=== PATIENT | female | born 1970 | race Caucasian/White ===

== ENCOUNTER 2022-08-28 14:02 | Emergency (ER) | payer BC ==
[2022-08-28 15:02] LABS: Absolute Lymphocytes (CBC) 2.5 K/uL (0.7-4.9); Hematocrit 42.5 % (36.0-45.0); Lymphocytes % 36.1 % (15.3-44.8); MCV 84.6 fL (80-100); MPV 8.8 fL (7.6-11.3); RBC Red Blood Cell Count 5.02 M/uL (3.86-4.86)
[2022-08-28] MEDS ORDERED: ASPIRIN 81 MG CHEWABLE TABLET ONE (15:05)
[2022-08-28] MEDS ORDERED: ONDANSETRON 4 MG/2 ML VIAL ONE (15:06)
[2022-08-28] MEDS ORDERED: MORPHINE 2 MG/ML SYR ONE (15:06)
[2022-08-28 15:42] LABS: Troponin High Sensitivity 4.3 pg/mL (<58.9)
[2022-08-28 15:44] LABS: Potassium 3.7 mmol/L (3.5-5.1)
--- NOTE | 2022-08-28 16:05 | RAD REPORT ---
EXAM DESCRIPTION: Tori Single View08/28/2022 3:27 pm CLINICAL HISTORY: Cough COMPARISON: none FINDINGS: The lungs appear clear of acute infiltrate. The heart is normal size IMPRESSION: No acute abnormalities displayed
--- NOTE | 2022-08-28 16:46 | EDPHYS ---
Physician Documentation [facility] Name: Marta Silverio Age: 51 yrs Sex: Female : 1970 Arrival Date: 08/28/2022 Time: 14:03 Bed 6 Private MD: LUIS Physician Ivana Manzano HPI: 08/28 14:57 This 51 yrs old Female presents to ER via Ambulatory with complaints of Chest Pain, sd2 Numbness Of Arm, Flu Symptoms. 14:57 51-year-old female presents with chief complaint of left-sided chest pain radiating to sd2 her left arm with numbness of the arm and flulike symptoms. She reports she initially started with a cold and flulike symptoms including cough, congestion, chills and body aches over the past few days. She noticed today that she had some worsening pain in her chest along with shortness of breath. She denies any known fevers, vomiting or recent sick contacts. She did recently drive down from home approximately 10 hours for the holidays. She was seen at urgent care before coming to our facility and tested negative for COVID and flu there before being sent here. They also reported that her blood pressure was high there at an unknown number greater than 140. She denies any prior history of HTN or cardiac issues. Denies leg edema, palpitations or hormone use. . 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 - Social history:: Smoking status: Patient denies any tobacco usage or history of. ROS: 14:57 Eyes: Negative for injury, pain, redness, and discharge. sd2 14:57 Abdomen/GI: Negative for abdominal pain, nausea, vomiting, positive for diarrhea. MS/Extremity: Negative for injury and deformity, Skin: Negative for injury, rash, and discoloration, Neuro: Negative for headache, numbness and tingling. 14:57 Constitutional: Positive for body aches, chills, malaise, Negative for fever. 14:57 Cardiovascular: Positive for chest pain, Negative for edema, palpitations. 14:57 Respiratory: Positive for cough, shortness of breath, Negative for wheezing. Exam: 14:57 Constitutional: This is a well developed, well nourished patient who is awake, alert, sd2 and in no acute distress. Head/Face: Normocephalic, atraumatic. Eyes: EOMI, normal conjunctiva bilaterally Chest/axilla: Normal chest wall appearance and motion. Nontender with no deformity. Cardiovascular: Regular rate and rhythm with a normal S1 and S2. No gallops, murmurs, or rubs. 2+ distal pulses. Respiratory: Lungs have equal breath sounds bilaterally, clear to auscultation and percussion. No rales, rhonchi or wheezes noted. No increased work of breathing, no retractions or nasal flaring. Abdomen/GI: Soft, non-tender, with normal bowel sounds. No guarding or rebound. No evidence of tenderness throughout. Skin: Warm, dry with normal turgor. Normal color with no rashes, no lesions, and no evidence of cellulitis. MS/ Extremity: Pulses equal, no cyanosis. Neurovascular intact. Full, normal range of motion. Ambulatory without difficulty. Psych: Awake, alert, with orientation to person, place and time. Behavior, mood, and affect are within normal limits. 14:57 ECG was reviewed by the Attending Physician. Sinus bradycardia, rate 55, no STEMI criteria Vital Signs: 14:07 BP 116 / 65; Pulse 71; Resp 16; Temp 98.1(TE); Pulse Ox 100% on R/A; Weight 74.84 kg; ss Height 6 ft. 5 in. (195.58 cm); Pain 6/10; 14:59 BP 112 / 81; Pulse 61; Pulse Ox 100% on R/A; ll1 16:00 BP 112 / 68; Pulse 63; Resp 17; Pulse Ox 98% ; ll1 16:55 BP 118 / 68; Pulse 69; Resp 17; Pulse Ox 100% ; Pain 4/10; ll1 14:07 Body Mass Index 19.57 (74.84 kg, 195.58 cm) ss MDM: 14:13 Patient medically screened. sd2 15:01 Differential diagnosis: Differential diagnosis includes but is not limited to: ACS, sd2 DVT/PE, pneumothorax, dissection, musculoskeletal, anxiety, anemia, electrolyte abnormality, pneumonia, CHF, COPD among others. Data reviewed: vital signs, nurses notes, EKG. 16:42 HEART Score: History: Moderately Suspicious (1), ECG: Normal (0), Age: > 45 and < 65 sd2 years (1), Risk Factors: 1 or 2 risk factors (1), Troponin: < or = 1 x Normal Limit (0), Total Score = 3. The patient was given aspirin in the Emergency Department. Data reviewed: lab test result(s), radiologic studies. Counseling: I had a detailed discussion with the patient and/or guardian regarding: the historical points, exam findings, and any diagnostic results supporting the discharge/admit diagnosis, lab results, radiology results, the need for outpatient follow up, to return to the emergency department if symptoms worsen or persist or if there are any questions or concerns that arise at home. Special discussion:. ED course: Labs and imaging reviewed. Labs grossly WNCL. Trop and D-dimer neg. EKG with no ischemic changes. CXR with no acute process. Pt feeling improved after treatment and BP has remained well controlled throughout her stay. Pt advised of results. Suspect viral syndrome and advised of continued supportive care and need for outpatient follow up if symptoms not improving or recurrence of chest pain. Verbalizes understanding of discharge plan and strict return precautions. . 08/28 14:42 Order name: Basic Metabolic Panel; Complete Time: 15:57 08/28 14:42 Order name: CBC with Diff; Complete Time: 15:21 08/28 14:42 Order name: Troponin HS; Complete Time: 15:57 08/28 14:42 Order name: XRAY Chest (1 view); Complete Time: 16:06 08/28 14:54 Order name: Magnesium; Complete Time: 16:22 sd2 08/28 15:22 Order name: D-Dimer; Complete Time: 15:57 sd2 08/28 14:21 Order name: EKG; Complete Time: 14:22 08/28 14:21 Order name: EKG - Nurse/Tech; Complete Time: 14:21 08/28 14:42 Order name: Cardiac monitoring; Complete Time: 14:42 08/28 14:42 Order name: IV Saline Lock; Complete Time: 14:42 08/28 14:42 Order name: Labs collected and sent; Complete Time: 14:42 08/28 14:42 Order name: O2 Per Protocol; Complete Time: 14:42 1 08/28 14:42 Order name: O2 Sat Monitoring; Complete Time: 14:42 ll1 Administered Medications: 15:08 Drug: Zofran (Ondansetron) 4 mg Route: IVP; Site: right antecubital; ll1 16:59 Follow up: Response: No adverse reaction 1 15:10 Drug: Aspirin Chewable Tablet 324 mg Route: PO; 1 16:59 Follow up: Response: No adverse reaction [facility] 15:10 Drug: morphine 2 mg {Note: pain 6/10, RASS 0.} Route: IVP; Infused Over: 4 mins; Site: ll1 right antecubital; 16:59 Follow up: Response: No adverse reaction; Pain is decreased; RASS: Alert and Calm (0) 1 Disposition Summary: 08/28/22 16:45 Discharge Ordered Location: Home sd2 Problem: new sd2 Symptoms: have improved sd2 Condition: Stable sd2 Diagnosis - Chest pain, unspecified sd2 - Acute viral syndrome sd2 Followup: sd2 - With: Private Physician - When: 2 - 3 days - Reason: Recheck today's complaints, Continuance of care, Re-evaluation by your physician Discharge Instructions: - Discharge Summary Sheet sd2 - Nonspecific Chest Pain, Adult sd2 - Viral Illness, Adult sd2 Forms: - Medication Reconciliation Form sd2 - Thank You Letter sd2 - Antibiotic Education sd2 - Prescription Opioid Use sd2 Signatures: Dispatcher [employer] Karis Tsai RN RN ss Lewis, Lynsay, RN RN [facility] Ivana Manzano MD MD sd2
--- NOTE | 2022-08-28 16:46 | ER ---
Nurse's Notes [facility] Name: Marta Silverio Age: 51 yrs Sex: Female : 1970 Arrival Date: 08/28/2022 Time: 14:03 Bed 6 Private MD: Diagnosis: Chest pain, unspecified;Acute viral syndrome Presentation: 08/28 14:07 Chief complaint: Patient states: L arm pain and tingling x "several days" that is now ss radiating towards neck. Pt states, "I've been short of breath for a couple of days, and urgent care tested me for COVID and flu and they were both negative.". Coronavirus screen: Client denies travel out of the [place] in the last 14 days. Ebola Screen: Patient denies exposure to infectious person. Patient denies travel to an Ebola-affected area in the 21 days before illness onset. Initial Sepsis Screen: Does the patient meet any 2 criteria? No. Patient's initial sepsis screen is negative. Does the patient have a suspected source of infection? No. Patient's initial sepsis screen is negative. Risk Assessment: Do you want to hurt yourself or someone else? Patient reports no desire to harm self or others. Onset of symptoms was August 23, 2022. 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 - Social history:: Smoking status: Patient denies any tobacco usage or history of. Screenin:00 [facility] ED Fall Risk Assessment (Adult) Score/Fall Risk Level 0 - 2 = Low Risk ll1 Oriented to surroundings, Maintained a safe environment, Educated pt \\T\\ family on fall prevention, incl call for assistance when getting out of bed, Hourly rounding (assess needs \\T\\ fall precautionary measures) done. 17:01 Abuse screen: Denies threats or abuse. Nutritional screening: No deficits noted. ll1 Tuberculosis screening: No symptoms or risk factors identified. Assessment: 14:10 General: Appears uncomfortable, Behavior is cooperative, appropriate for age. Pain: ll1 Complains of pain in left arm Pain radiates to L side of neck area Pain currently is 6 out of 10 on a pain scale. Quality of pain is described as aching. Neuro: Reports paresthesias in right hand and left arm. Cardiovascular: Reports chest pain, shortness of breath. Respiratory: Reports shortness of breath cough that is. 14:12 Reassessment: No changes from previously documented assessment. Patient and/or family ll1 updated on plan of care and expected duration. Pain level reassessed. 14:59 Reassessment: No changes from previously documented assessment. Patient and/or family ll1 updated on plan of care and expected duration. Pain level reassessed. Patient is alert, oriented x 3, equal unlabored respirations, skin warm/dry/pink. 16:00 Reassessment: No changes from previously documented assessment. Patient and/or family ll1 updated on plan of care and expected duration. Pain level reassessed. Patient is alert, oriented x 3, equal unlabored respirations, skin warm/dry/pink. 16:59 Reassessment: No changes from previously documented assessment. Patient and/or family ll1 updated on plan of care and expected duration. Pain level reassessed. Patient is alert, oriented x 3, equal unlabored respirations, skin warm/dry/pink. 17:02 Pain: Pain began 2-3 days ago. 1 Vital Signs: 14:07 BP 116 / 65; Pulse 71; Resp 16; Temp 98.1(TE); Pulse Ox 100% on R/A; Weight 74.84 kg; Height 6 ft. 5 in. (195.58 cm); Pain 6/10; 14:59 BP 112 / 81; Pulse 61; Pulse Ox 100% on R/A; ll1 16:00 BP 112 / 68; Pulse 63; Resp 17; Pulse Ox 98% ; ll1 16:55 BP 118 / 68; Pulse 69; Resp 17; Pulse Ox 100% ; Pain 4/10; ll1 14:07 Body Mass Index 19.57 (74.84 kg, 195.58 cm) ED Course: 14:03 Patient arrived in ED. am2 14:09 Triage completed. 14:09 Arm band placed on right wrist. 14:11 Chilo Iraheta, RN is Primary Nurse. 1 14:12 Patient placed in an exam room, on a stretcher. 1 14:13 Ivana Manzano MD is Attending Physician. sd2 14:22 EKG completed in triage. Results shown to MD. ll1 14:27 Inserted saline lock: 20 gauge in right antecubital area, using aseptic technique. ko1 Blood collected. 15:00 Patient has correct armband on for positive identification. Bed in low position. Call ll1 light in reach. Client placed on continuous cardiac and pulse oximetry monitoring. NIBP monitoring applied. hematology oncology consultant on. 15:29 XRAY Chest (1 view) In Process Unspecified. EDMS 16:58 No provider procedures requiring assistance completed. IV discontinued, intact, ll1 bleeding controlled, No redness/swelling at site. Pressure dressing applied. Patient maintains SpO2 saturation greater than 95% on room air. Administered Medications: 15:08 Drug: Zofran (Ondansetron) 4 mg Route: IVP; Site: right antecubital; 1 16:59 Follow up: Response: No adverse reaction 1 15:10 Drug: Aspirin Chewable Tablet 324 mg Route: PO; 1 16:59 Follow up: Response: No adverse reaction 1 15:10 Drug: morphine 2 mg {Note: pain 6/10, RASS 0.} Route: IVP; Infused Over: 4 mins; Site: ll1 right antecubital; 16:59 Follow up: Response: No adverse reaction; Pain is decreased; RASS: Alert and Calm (0) 1 Medication: 17:02 VIS not applicable for this client. 1 Outcome: 16:45 Discharge ordered by . sd2 17:02 Discharged to home ambulatory. 1 17:02 Condition: stable 17:02 Discharge instructions given to patient, family, Instructed on discharge instructions, follow up and referral plans. Demonstrated understanding of instructions, follow-up care. 17:03 Patient left the ED. 1 Signatures: Dispatcher [employer] EDMS Karis Cyr RN RN ss Moreno, Amanda am2 Lewis, Lynsay, RN RN 1 Ivana Manzano MD MD sd2 Kandis Park RN RN ko1
[2022-08-28 17:48] VITALS: TEMP 98.1
[2022-08-28 17:51] VITALS: BP 118/68; O2SAT 100
--- NOTE | 2022-08-29 14:33 | EKG ---
Test Date: 2022-08-28 Test Time: 14:18:44 Circuit Design Engineer: LML MEASUREMENT RESULTS: Intervals: Rate: 62 IA: 160 QRSD: 74 QT: 418 QTc: 424 [place]: P: 69 IA: 160 QRS: 54 T: 30 INTERPRETIVE STATEMENTS: Normal sinus rhythm with sinus arrhythmia Normal ECG No previous ECG available for comparison Electronically Signed On 08-29-22 14:31:28 REGISTERED DENTAL HYGIENIST by Dangelo Perera
--- NOTE | 2022-08-30 16:07 | EKG ---
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
== END 2022-08-28 17:03 | disposition home or self-care (01) ==
LOC: ER 14:02
DX: B34.9 Viral infection, unspecified (principal)
CPT/HCPCS: 93005 ×2; 85025; 80048; 36415; 83735; 85379; 84484; 71045; 96375; 96374; 99285; J2270; J2405